=== PATIENT | male | born 1935 | race African-American/Black ===

== ENCOUNTER 2023-09-24 16:04 | Inpatient (IN) | payer MEDICARE, OTHER ==
[~2023-09-24] VITALS: Ht 180.3 cm; Wt 87.5 kg
[2023-09-24 18:37] LABS: HEMATOCRIT. 28.1 % (42.0-52.0); HEMOGLOBIN. 9.2 g/dL (14.0-18.0); MEAN CORPUSCULAR HEMOGLOBIN 27.8 pg (28.0-32.0); MEAN CORPUSCULAR HGB CONC 32.8 g/dL (31.0-37.0); MEAN CORPUSCULAR VOLUME 84.8 fL (80.0-94.0); MEAN PLATELET VOLUME 7.6 fl (7.4-10.4); PLATELET 257 x1000/uL (130-400); RED BLOOD CELL COUNT 3.32 mill/uL (4.7-6.1); RED CELL DISTRIBUTION WIDTH 14.5 % (11.6-14.6); WHITE BLOOD COUNT 6.6 x1000/uL (4.5-11.0)
[2023-09-24 18:39] LABS: DIFFERENTIAL COMMENT 1
[2023-09-24 18:45] LABS: CHLORIDE 106 mEq/L (98-107); INDEX HEMOLYSI 1 (1-3); INDEX ICTERIC 1 (1-4); INDEX LIPEMIC 1 (1-3); POTASSIUM 4.4 mEq/L (3.5-5.1); SODIUM 138 mEq/L (136-145)
[2023-09-24 18:46] LABS: PROTHROMBIN TIME 11.2 sec (9.6-11.0)
[2023-09-24 18:47] LABS: UREA NITROGEN BLOOD 28 mg/dL (7-21)
[2023-09-24 18:54] LABS: ALANINE AMINOTRANSFERASE 41 IU/L (13-61); ALBUMIN 2.5 g/dL (3.4-5.0); ASPARTATE AMINOTRANSFERASE 43 IU/L (15-37); BILIRUBIN TOTAL 0.6 mg/dL (0.1-1.0); CARBON DIOXIDE 25 mEq/L (21-32); CREATININE 1.1 mg/dL (0.6-1.3); GLUCOSE 114 mg/dL (70-105); PROTEIN TOTAL 6.4 g/dL (6.0-8.3)
[2023-09-24 19:09] LABS: PLATELET ESTIMATE NORMAL
[2023-09-24] MEDS ORDERED: CLONIDINE 0.1MG TABLET PO PRN (21:00)
[2023-09-24] MEDS ORDERED: MAGNESIUM/ALUMINUM HYDROXIDE/SIMETHICONE 30ML UDC PO PRN (21:00)
[2023-09-24] MEDS ORDERED: DOCUSATE SODIUM 100MG CAPSULE PO PRN (21:00)
[2023-09-24] MEDS ORDERED: METOPROLOL SUCCINATE 50MG ER TABLET PO SCH (21:00)
[2023-09-24] MEDS ORDERED: ONDANSETRON HCL 4MG/2ML INJ IV PRN (21:00)
[2023-09-24] MEDS ORDERED: GUAIFENESIN 200MG/10ML SUGAR FREE UDC PO PRN (21:00)
[2023-09-24] MEDS ORDERED: NA PHOS,M-B/NA PHOS,DI-BA ENEMA 118ML PR PRN (21:00)
[2023-09-24] MEDS ORDERED: MORPHINE SULFATE 2 MG/ML CPJ (NOT FOR IM USE) IV PRN (21:00)
[2023-09-24] MEDS ORDERED: KETOROLAC 15MG/ML VIAL IV PRN (21:00)
[2023-09-24] MEDS ORDERED: ACETAMINOPHEN 325MG TABLET PO PRN (21:00)
[2023-09-24] MEDS ORDERED: IPRATROPIUM/ALBUTEROL 0.5-3(2.5)MG/3ML NEB HHN PRN (21:00)
[2023-09-24] MEDS: ATORVASTATIN CALCIUM 20MG TABLET PO SCH (21:24)
[2023-09-24] MEDS: METOPROLOL TARTRATE 25MG TABLET PO SCH (21:24)
[2023-09-24 21:37] LABS: INDEX HEMOLYSI 2 (1-3); INDEX ICTERIC 1 (1-4); INDEX LIPEMIC 1 (1-3)
[2023-09-24 21:41] LABS: HAPTOGLOBIN 233 mg/dL (30-200); IRON 30 ug/dL (50-175); TOTAL IRON BINDING CAPACITY 180 ug/dL (250-450)
[2023-09-24 22:29] LABS: CLARITY URINE CLEAR (CLEAR); COLOR URINE YELLOW (YELLOW); GLUCOSE URINE NEGATIVE (NEGATIVE); KETONES URINE NEGATIVE (NEGATIVE); LEUKOCYTE ESTERASE URINE NEGATIVE (NEGATIVE); NITRITE URINE NEGATIVE (NEGATIVE); OCCULT BLOOD URINE NEGATIVE (NEGATIVE); PH URINE 5.5 (4.5-8.0); PROTEIN URINE NEGATIVE (NEGATIVE); SPECIFIC GRAVITY URINE 1.015 (1.005-1.030)
[2023-09-24 22:49] LABS: HEMATOCRIT 28.1 % (42.0-52.0); HEMOGLOBIN 9.5 g/dL (14.0-18.0)
[2023-09-24 22:51] LABS: *AMPHETAMINES SCREEN URINE NEGATIVE (NEGATIVE); *BARBITURATES SCREEN URINE NEGATIVE (NEGATIVE); *BENZODIAZEPINES SCREEN URINE NEGATIVE (NEGATIVE); *COCAINE SCREEN URINE NEGATIVE (NEGATIVE); CANNABINOID URINE SCREEN NEGATIVE (NEGATIVE); ECSTASY MDMA SCREEN URINE NEGATIVE (NEGATIVE); METHADONE URINE SCREEN NEGATIVE (NEGATIVE); OPIATES URINE SCREEN NEGATIVE (NEGATIVE); PHENCYCLIDINE URINE SCREEN NEGATIVE (NEGATIVE)
[2023-09-24 22:51] LABS: INDEX HEMOLYSI 1 (1-3)
[2023-09-24 22:58] LABS: CREATINE KINASE 129 IU/L (39-308); TROPONIN I HIGH SENSITIVITY 15 ng/L (<78)
[2023-09-25 04:00] VITALS: BP 163/61; PULSE 79; RESP 18; TEMP 97.8
[2023-09-25 05:55] VITALS: BP 113/77; PULSE 82; RESP 18; TEMP 98.6
[2023-09-25 06:12] LABS: INDEX HEMOLYSI 1 (1-3)
[2023-09-25 06:19] LABS: CREATINE KINASE 116 IU/L (39-308); TROPONIN I HIGH SENSITIVITY 13 ng/L (<78)
[2023-09-25 06:44] LABS: FOLIC ACID (FOLATE) SERUM 18.3 ng/mL (>5.38)
[2023-09-25 06:48] LABS: CHLORIDE 107 mEq/L (98-107); INDEX HEMOLYSI 1 (1-3); INDEX ICTERIC 1 (1-4); INDEX LIPEMIC 1 (1-3); POTASSIUM 4.3 mEq/L (3.5-5.1); SODIUM 141 mEq/L (136-145)
[2023-09-25 07:01] LABS: ALANINE AMINOTRANSFERASE 38 IU/L (13-61); ALBUMIN 2.3 g/dL (3.4-5.0); ASPARTATE AMINOTRANSFERASE 37 IU/L (15-37); BILIRUBIN TOTAL 0.7 mg/dL (0.1-1.0); CALCIUM 8.2 mg/dL (8.5-10.1); CARBON DIOXIDE 29 mEq/L (21-32); CHOLESTEROL 98 mg/dL (<200); GLUCOSE 93 mg/dL (70-105); HDL CHOLESTEROL 40 mg/dL (40-59); LDL CHOLESTEROL 56 mg/dL (5-100); PROTEIN TOTAL 6.2 g/dL (6.0-8.3); T4 FREE 1.22 ng/dL (0.76-1.46); TRIGLYCERIDE 87 mg/dL (0-150); UREA NITROGEN BLOOD 24 mg/dL (7-21)
[2023-09-25 07:08] LABS: BASOPHILS % 0.5 % (0.0-2.0); EOSINOPHILS % 3.5 % (0.0-5.0); HEMATOCRIT. 27.1 % (42.0-52.0); HEMOGLOBIN. 9.1 g/dL (14.0-18.0); LYMPHOCYTES % 7.3 % (20.0-50.0); MEAN CORPUSCULAR HEMOGLOBIN 28.2 pg (28.0-32.0); MEAN CORPUSCULAR HGB CONC 33.6 g/dL (31.0-37.0); MEAN CORPUSCULAR VOLUME 84.1 fL (80.0-94.0); MEAN PLATELET VOLUME 7.6 fl (7.4-10.4); MONOCYTES % 9.7 % (2.0-8.0); PLATELET 258 x1000/uL (130-400); RED BLOOD CELL COUNT 3.22 mill/uL (4.7-6.1); RED CELL DISTRIBUTION WIDTH 14.5 % (11.6-14.6); WHITE BLOOD COUNT 4.4 x1000/uL (4.5-11.0)
[2023-09-25 08:00] VITALS: PULSE 86; RESP 18; TEMP 97.1
[2023-09-25] MEDS ORDERED: APIXABAN 2.5 MG TABLET PO SCH (09:00)
[2023-09-25] MEDS: LISINOPRIL 10MG TABLET PO SCH ×2 (09:00→10:38)
[2023-09-25] MEDS: METOPROLOL TARTRATE 25MG TABLET PO SCH ×2 (10:39→12:09)
[2023-09-25] MEDS: PANTOPRAZOLE SODIUM 40 MG/VIAL IV SCH (10:40)
[2023-09-25 12:00] VITALS: BP 143/76; PULSE 85; RESP 18; TEMP 97.7
[2023-09-25 16:00] VITALS: BP 159/90; PULSE 99; RESP 19; TEMP 97.9
[2023-09-25] MEDS ORDERED: DEXT 5%/0.45% NACL 1000ML 1,000 ML IV SCH (19:00)
[2023-09-25 20:00] VITALS: BP 169/79; PULSE 108; RESP 19; TEMP 97.4
[2023-09-25] MEDS: ATORVASTATIN CALCIUM 20MG TABLET PO SCH (21:14)
[2023-09-26] VITALS: BP 159/83; PULSE 65; RESP 17; TEMP 99.6
[2023-09-26 04:00] VITALS: BP 148/70; PULSE 104; RESP 19; TEMP 97.3
[2023-09-26] MEDS: DEXT 5%/0.45% NACL 1000ML 1,000 ML IV SCH ×3 (06:12→21:40)
[2023-09-26] MEDS ORDERED: LIDOCAINE HCL 1%/EPI 1:200,000 30 ML VIAL ONE (06:35)
[2023-09-26] MEDS ORDERED: POLYMYXIN B SULFATE 500000 UNITS/VIAL ONE (06:35)
[2023-09-26] MEDS ORDERED: VANCOMYCIN HCL 1 GM/VIAL ONE (06:35)
[2023-09-26] MEDS ORDERED: TRANEXAMIC ACID 0 ML ONE (06:51)
[2023-09-26] MEDS ORDERED: METOCLOPRAMIDE HCL 10MG/2ML VIAL ONE (07:19)
[2023-09-26] MEDS ORDERED: LIDOCAINE HCL 1% 20ML VIAL (Pyxis) INJ ONE (07:19)
[2023-09-26] MEDS ORDERED: ONDANSETRON HCL 4MG/2ML INJ ONE (07:19)
[2023-09-26] MEDS ORDERED: CEFAZOLIN SODIUM 1000MG/VIAL ONE (07:19)
[2023-09-26] MEDS ORDERED: DEXAMETHASONE 4MG/ML 1ML VIAL ONE (07:19)
[2023-09-26] MEDS ORDERED: FENTANYL CITRATE/PF 50MCG/ML 2ML VIAL ONE ×2 (07:20→07:52)
[2023-09-26] MEDS ORDERED: PROPOFOL 200MG/20ML VIAL IV ONE (07:20)
[2023-09-26] MEDS ORDERED: HYDROMORPHONE HCL/PF 2MG/ML CPJ ONE (07:53)
[2023-09-26] MEDS ORDERED: METOPROLOL TARTRATE 5MG/5ML VIAL IV ONE (08:19)
[2023-09-26] MEDS ORDERED: FENTANYL CITRATE/PF 50MCG/ML 2ML VIAL IV PRN (09:15)
[2023-09-26] MEDS ORDERED: HYDROMORPHONE HCL/PF 2MG/ML CPJ IV PRN (09:15)
[2023-09-26 10:22] VITALS: BP 147/72; PULSE 101; RESP 20; TEMP 97.7
[2023-09-26] MEDS: METOPROLOL TARTRATE 25MG TABLET PO SCH ×2 (11:22→21:57)
[2023-09-26] MEDS: LISINOPRIL 10MG TABLET PO SCH (11:22)
[2023-09-26] MEDS: PANTOPRAZOLE SODIUM 40 MG/VIAL IV SCH (11:22)
[2023-09-26 11:42] LABS: HEMOGLOBIN. 9.3 g/dL (14.0-18.0); MEAN CORPUSCULAR HEMOGLOBIN 27.6 pg (28.0-32.0); MEAN CORPUSCULAR HGB CONC 32.1 g/dL (31.0-37.0); MEAN CORPUSCULAR VOLUME 85.9 fL (80.0-94.0); MEAN PLATELET VOLUME 7.1 fl (7.4-10.4); PLATELET 305 x1000/uL (130-400); RED BLOOD CELL COUNT 3.38 mill/uL (4.7-6.1); RED CELL DISTRIBUTION WIDTH 14.9 % (11.6-14.6); WHITE BLOOD COUNT 9.6 x1000/uL (4.5-11.0)
[2023-09-26 11:47] LABS: DIFFERENTIAL COMMENT 1
[2023-09-26 12:26] LABS: CHLORIDE 108 mEq/L (98-107); INDEX HEMOLYSI 1 (1-3); INDEX ICTERIC 1 (1-4); INDEX LIPEMIC 1 (1-3); POTASSIUM 4.5 mEq/L (3.5-5.1); SODIUM 140 mEq/L (136-145)
[2023-09-26 12:35] LABS: CALCIUM 7.8 mg/dL (8.5-10.1); CARBON DIOXIDE 26 mEq/L (21-32); CREATININE 1.1 mg/dL (0.6-1.3); GLUCOSE 134 mg/dL (70-105); UREA NITROGEN BLOOD 22 mg/dL (7-21)
[2023-09-26 14:01] LABS: NUCLEATED RED BLOOD CELLS 1 /100 WBC; PLATELET ESTIMATE NORMAL
[2023-09-26] MEDS: CEFAZOLIN 2,000 MG in DEXT 5% WATER 100 ML IV SCH ×2 (14:50→22:14)
[2023-09-26 16:00] VITALS: BP 125/91; PULSE 83; RESP 19; TEMP 98.2
[2023-09-26 20:00] VITALS: BP 130/72; PULSE 104; RESP 16; TEMP 97.1
[2023-09-26] MEDS: ATORVASTATIN CALCIUM 20MG TABLET PO SCH (21:57)
[2023-09-26] MEDS: ACETAMINOPHEN 325MG TABLET PO PRN (22:02)
[2023-09-27] VITALS: BP 129/63; PULSE 85; RESP 16; TEMP 97.5
[2023-09-27 04:00] VITALS: BP 131/84; PULSE 86; RESP 18; TEMP 97.8
[2023-09-27] MEDS: CEFAZOLIN 2,000 MG in DEXT 5% WATER 100 ML IV SCH ×3 (06:15→13:39)
[2023-09-27 08:00] VITALS: BP 132/76; PULSE 76; RESP 18; TEMP 96.6
[2023-09-27] MEDS: METOPROLOL TARTRATE 25MG TABLET PO SCH ×2 (09:30→21:00)
[2023-09-27] MEDS: PANTOPRAZOLE SODIUM 40 MG/VIAL IV SCH (09:31)
[2023-09-27] MEDS: LISINOPRIL 10MG TABLET PO SCH (09:31)
[2023-09-27] MEDS: ACETAMINOPHEN 325MG TABLET PO PRN (09:46)
[2023-09-27] MEDS: DEXT 5%/0.45% NACL 1000ML 1,000 ML IV SCH (11:00)
[2023-09-27 12:00] VITALS: BP 113/68; PULSE 88; RESP 18; TEMP 97.6
[2023-09-27 16:00] VITALS: BP 113/67; PULSE 81; RESP 19; TEMP 97.7
[2023-09-27 20:00] VITALS: BP 106/65; PULSE 106; RESP 18; TEMP 96.5
[2023-09-27] MEDS: ATORVASTATIN CALCIUM 20MG TABLET PO SCH (21:00)
[2023-09-28] VITALS: BP 130/75; PULSE 103; RESP 18; TEMP 98.2
[2023-09-28] MEDS: DEXT 5%/0.45% NACL 1000ML 1,000 ML IV SCH (00:07)
[2023-09-28 04:00] VITALS: BP 131/70; PULSE 87; RESP 18; TEMP 97.9
[2023-09-28] MEDS: CEFAZOLIN 2,000 MG in DEXT 5% WATER 100 ML IV SCH (05:27)
[2023-09-28 07:24] LABS: HEMATOCRIT. 26.4 % (42.0-52.0); HEMOGLOBIN. 8.7 g/dL (14.0-18.0); MEAN CORPUSCULAR HEMOGLOBIN 28.1 pg (28.0-32.0); MEAN CORPUSCULAR HGB CONC 32.8 g/dL (31.0-37.0); MEAN CORPUSCULAR VOLUME 85.5 fL (80.0-94.0); MEAN PLATELET VOLUME 7.3 fl (7.4-10.4); PLATELET 269 x1000/uL (130-400); RED BLOOD CELL COUNT 3.09 mill/uL (4.7-6.1); RED CELL DISTRIBUTION WIDTH 15.2 % (11.6-14.6); WHITE BLOOD COUNT 6.1 x1000/uL (4.5-11.0)
[2023-09-28 07:28] LABS: DIFFERENTIAL COMMENT 1
[2023-09-28 07:39] LABS: CALCIUM 8.3 mg/dL (8.5-10.1); CHLORIDE 109 mEq/L (98-107); INDEX HEMOLYSI 1 (1-3); INDEX ICTERIC 1 (1-4); INDEX LIPEMIC 1 (1-3); POTASSIUM 4.5 mEq/L (3.5-5.1); SODIUM 139 mEq/L (136-145)
[2023-09-28 07:44] LABS: CARBON DIOXIDE 27 mEq/L (21-32); GLUCOSE 104 mg/dL (70-105); UREA NITROGEN BLOOD 21 mg/dL (7-21)
[2023-09-28 08:00] VITALS: BP 135/70; PULSE 79; RESP 20; TEMP 97.1
[2023-09-28] MEDS: LISINOPRIL 10MG TABLET PO SCH (08:28)
[2023-09-28] MEDS: METOPROLOL TARTRATE 25MG TABLET PO SCH (08:28)
[2023-09-28] MEDS ORDERED: FAMOTIDINE 20MG TABLET PO SCH (09:00)
[2023-09-28 12:00] VITALS: BP 103/49; PULSE 75; RESP 20; TEMP 97.1
[2023-09-28 13:18] VITALS: BP 103/49; PULSE 75; TEMP 97.8; O2SAT 100
[2023-09-29 11:26] LABS: ANISOCYTOSIS 1+; PLATELET ESTIMATE NORMAL
== END 2023-09-28 16:06 | DRG 482 ==
LOC: ER 16:04 → 6EST 20:38
PROVIDERS: ADMIT Internal Medicine; ATTEND Internal Medicine
PROC: 0QS606Z Reposition Right Upper Femur with Intramedullary Internal Fixation Device, Open Approach (ICD-10-PCS; principal; 2023-09-26)
DX: S72.141A Displaced intertrochanteric fracture of right femur, initial encounter for closed fracture (principal); D63.8 Anemia in other chronic diseases classified elsewhere; I10 Essential (primary) hypertension; K59.00 Constipation, unspecified; D50.9 Iron deficiency anemia, unspecified; G89.29 Other chronic pain; I48.0 Paroxysmal atrial fibrillation; E78.5 Hyperlipidemia, unspecified; W01.0XXA Fall on same level from slipping, tripping and stumbling without subsequent striking against object, initial encounter; Z79.01 Long term (current) use of anticoagulants; Z85.46 Personal history of malignant neoplasm of prostate; Z92.3 Personal history of irradiation; Z79.899 Other long term (current) drug therapy; Z82.49 Family history of ischemic heart disease and other diseases of the circulatory system
CPT/HCPCS: 36415; 71045; 73502; 73560; 74176; 76000; 80048; 80053; 80061; 80305; 81003; 82550; 82607; 82728; 82746; 82962; 83010; 83036; 83540; 83550; 83605; 84145; 84439; 84443; 84484; 85014; 85018; 85025; 85044; 86850; 86900; 93005; 93306; 97162; 97166; 97530; 97535; 99285; C9113; J0690; J1100; J1170; J1885; J2270; J2405; J2704; J2765; J3010; J3370; J3490; J7030; J7060; C1713; C1769

== ENCOUNTER 2023-09-28 16:05 | Inpatient (IN) | payer MEDICARE ==
[~2023-09-28] VITALS: Ht 180.3 cm; Wt 86.6 kg
[2023-09-28 16:10] VITALS: BP 125/62; PULSE 88; RESP 18; TEMP 96.6
[2023-09-28 16:30] VITALS: BP 125/62; PULSE 62; RESP 18; TEMP 96.6
[2023-09-28] MEDS ORDERED: NA PHOS,M-B/NA PHOS,DI-BA ENEMA 118ML PR PRN (17:15)
[2023-09-28] MEDS ORDERED: CLONIDINE 0.1MG TABLET PO PRN (17:15)
[2023-09-28] MEDS ORDERED: ACETAMINOPHEN 325MG TABLET PO PRN (17:15)
[2023-09-28] MEDS ORDERED: IPRATROPIUM/ALBUTEROL 0.5-3(2.5)MG/3ML NEB HHN PRN (17:15)
[2023-09-28] MEDS ORDERED: GUAIFENESIN 200MG/10ML SUGAR FREE UDC PO PRN (17:15)
[2023-09-28] MEDS ORDERED: MAGNESIUM/ALUMINUM HYDROXIDE/SIMETHICONE 30ML UDC PO PRN (17:15)
[2023-09-28] MEDS ORDERED: ONDANSETRON HCL 4MG/2ML INJ IV PRN (17:15)
[2023-09-28] MEDS ORDERED: LISINOPRIL 10MG TABLET PO SCH (18:00)
[2023-09-28] MEDS: DOCUSATE SODIUM 100MG CAPSULE PO SCH (18:51)
[2023-09-28 20:00] VITALS: BP 124/80; PULSE 113; RESP 18; TEMP 99.1
[2023-09-28] MEDS: LACTULOSE 20G/30ML UDC PO SCH ×2 (22:00→22:02)
[2023-09-28] MEDS: DEXT 5%/0.45% NACL 1000ML 1,000 ML IV SCH (22:01)
[2023-09-28] MEDS: FAMOTIDINE 20MG TABLET PO SCH (22:01)
[2023-09-28] MEDS: ATORVASTATIN CALCIUM 20MG TABLET PO SCH (22:02)
[2023-09-28] MEDS: METOPROLOL TARTRATE 25MG TABLET PO SCH (22:02)
[2023-09-28] MEDS: ACETAMINOPHEN 325MG TABLET PO PRN (22:03)
[2023-09-29] MEDS: LACTULOSE 20G/30ML UDC PO SCH (07:04)
[2023-09-29] MEDS: DEXT 5%/0.45% NACL 1000ML 1,000 ML IV SCH ×3 (07:20→23:20)
[2023-09-29 08:00] VITALS: BP 135/81; PULSE 101; RESP 18; TEMP 96.8
[2023-09-29 08:33] LABS: HEMATOCRIT. 27.5 % (42.0-52.0); HEMOGLOBIN. 9.1 g/dL (14.0-18.0); MEAN CORPUSCULAR HEMOGLOBIN 28.2 pg (28.0-32.0); MEAN CORPUSCULAR HGB CONC 33.1 g/dL (31.0-37.0); MEAN CORPUSCULAR VOLUME 85.2 fL (80.0-94.0); MEAN PLATELET VOLUME 7.2 fl (7.4-10.4); PLATELET 271 x1000/uL (130-400); RED BLOOD CELL COUNT 3.22 mill/uL (4.7-6.1); RED CELL DISTRIBUTION WIDTH 15.2 % (11.6-14.6); WHITE BLOOD COUNT 6.8 x1000/uL (4.5-11.0)
[2023-09-29 08:37] LABS: DIFFERENTIAL COMMENT 1
[2023-09-29 09:22] LABS: CHLORIDE 108 mEq/L (98-107); INDEX HEMOLYSI 1 (1-3); INDEX ICTERIC 1 (1-4); INDEX LIPEMIC 1 (1-3); POTASSIUM 4.5 mEq/L (3.5-5.1); SODIUM 140 mEq/L (136-145)
[2023-09-29] MEDS: LISINOPRIL 10MG TABLET PO SCH (09:26)
[2023-09-29] MEDS: METOPROLOL TARTRATE 25MG TABLET PO SCH ×2 (09:27→21:00)
[2023-09-29] MEDS: DOCUSATE SODIUM 100MG CAPSULE PO SCH ×2 (09:27→17:17)
[2023-09-29 09:39] LABS: ALANINE AMINOTRANSFERASE 33 IU/L (13-61); ALBUMIN 2.4 g/dL (3.4-5.0); ASPARTATE AMINOTRANSFERASE 45 IU/L (15-37); BILIRUBIN TOTAL 0.5 mg/dL (0.1-1.0); CALCIUM 8.5 mg/dL (8.5-10.1); CARBON DIOXIDE 28 mEq/L (21-32); CREATININE 0.9 mg/dL (0.6-1.3); GLUCOSE 104 mg/dL (70-105); PREALBUMIN 10.4 mg/dL (20.0-40.0); PROTEIN TOTAL 6.3 g/dL (6.0-8.3); UREA NITROGEN BLOOD 22 mg/dL (7-21)
[2023-09-29] MEDS: ACETAMINOPHEN 325MG TABLET PO PRN (13:36)
[2023-09-29 16:31] LABS: PLATELET ESTIMATE NORMAL
[2023-09-29 20:00] VITALS: BP 121/72; PULSE 99; RESP 28; TEMP 97.5
[2023-09-29] MEDS: ATORVASTATIN CALCIUM 20MG TABLET PO SCH (21:22)
[2023-09-29] MEDS: FAMOTIDINE 20MG TABLET PO SCH (21:22)
[2023-09-29] MEDS: ENOXAPARIN 30MG/0.3ML SYR SUBCUT SCH (21:24)
[2023-09-30] MEDS: ACETAMINOPHEN 325MG TABLET PO PRN ×2 (06:45→12:47)
[2023-09-30 07:33] LABS: BASOPHILS % 0.5 % (0.0-2.0); EOSINOPHILS % 3.1 % (0.0-5.0); HEMOGLOBIN. 8.5 g/dL (14.0-18.0); LYMPHOCYTES % 7.9 % (20.0-50.0); MEAN CORPUSCULAR HEMOGLOBIN 27.9 pg (28.0-32.0); MEAN CORPUSCULAR HGB CONC 32.8 g/dL (31.0-37.0); MEAN CORPUSCULAR VOLUME 85.2 fL (80.0-94.0); MEAN PLATELET VOLUME 7.2 fl (7.4-10.4); MONOCYTES % 6.2 % (2.0-8.0); NEUTROPHILS % 82.3 % (40.0-76.0); PLATELET 264 x1000/uL (130-400); RED BLOOD CELL COUNT 3.06 mill/uL (4.7-6.1); RED CELL DISTRIBUTION WIDTH 15.4 % (11.6-14.6)
[2023-09-30 08:00] VITALS: BP 137/88; PULSE 108; RESP 22; TEMP 97.6
[2023-09-30] MEDS: DOCUSATE SODIUM 100MG CAPSULE PO SCH ×2 (08:41→17:00)
[2023-09-30] MEDS: LISINOPRIL 10MG TABLET PO SCH (08:42)
[2023-09-30] MEDS: METOPROLOL TARTRATE 25MG TABLET PO SCH ×2 (08:42→21:46)
[2023-09-30 09:11] LABS: ALBUMIN 2.2 g/dL (3.4-5.0); CHLORIDE 109 mEq/L (98-107); INDEX HEMOLYSI 1 (1-3); INDEX ICTERIC 1 (1-4); INDEX LIPEMIC 1 (1-3); POTASSIUM 4.3 mEq/L (3.5-5.1); SODIUM 139 mEq/L (136-145)
[2023-09-30 09:17] LABS: ALANINE AMINOTRANSFERASE 50 IU/L (13-61); ASPARTATE AMINOTRANSFERASE 54 IU/L (15-37); BILIRUBIN TOTAL 0.5 mg/dL (0.1-1.0); CARBON DIOXIDE 27 mEq/L (21-32); CREATININE 0.8 mg/dL (0.6-1.3); GLUCOSE 95 mg/dL (70-105); IRON 35 ug/dL (50-175); PROTEIN TOTAL 5.9 g/dL (6.0-8.3); TOTAL IRON BINDING CAPACITY 179 ug/dL (250-450)
[2023-09-30] MEDS ORDERED: IRON SUCROSE COMPLEX 100 MG/5 ML ML IV SCH (09:30)
[2023-09-30 11:07] LABS: UREA NITROGEN BLOOD 19 mg/dL (7-21)
[2023-09-30 12:28] LABS: VITAMIN B12 SERUM 1308 pg/mL (211-911)
[2023-09-30 14:22] LABS: FERRITIN 155 ng/mL (22-322)
[2023-09-30] MEDS: DEXT 5%/0.45% NACL 1000ML 1,000 ML IV SCH (15:28)
[2023-09-30] MEDS: IRON SUCROSE COMPLEX 100 MG in SODIUM CHLORIDE 0.9% 100 ML IV SCH (15:29)
[2023-09-30 20:00] VITALS: BP 131/76; PULSE 104; RESP 18; TEMP 97.7
[2023-09-30] MEDS: ATORVASTATIN CALCIUM 20MG TABLET PO SCH (21:46)
[2023-09-30] MEDS: FAMOTIDINE 20MG TABLET PO SCH (21:46)
[2023-09-30] MEDS: ENOXAPARIN 30MG/0.3ML SYR SUBCUT SCH (21:47)
[2023-10-01] MEDS: DEXT 5%/0.45% NACL 1000ML 1,000 ML IV SCH (06:14)
[2023-10-01 07:56] VITALS: BP 135/74; PULSE 97; RESP 20; TEMP 96.4
[2023-10-01] MEDS: LISINOPRIL 10MG TABLET PO SCH (08:31)
[2023-10-01] MEDS: DOCUSATE SODIUM 100MG CAPSULE PO SCH ×2 (08:31→17:32)
[2023-10-01] MEDS: METOPROLOL TARTRATE 25MG TABLET PO SCH ×2 (08:32→21:19)
[2023-10-01] MEDS: ACETAMINOPHEN 325MG TABLET PO PRN (08:34)
[2023-10-01] MEDS ORDERED: ACETAMINOPHEN 325MG TABLET PO PRN ×2 (10:15)
[2023-10-01] MEDS: IRON SUCROSE COMPLEX 100 MG in SODIUM CHLORIDE 0.9% 100 ML IV SCH (12:07)
[2023-10-01] MEDS: KETOROLAC 10MG TABLET PO PRN (13:47)
[2023-10-01 20:00] VITALS: BP 130/69; PULSE 98; RESP 20; TEMP 97.5
[2023-10-01] MEDS: ATORVASTATIN CALCIUM 20MG TABLET PO SCH (21:18)
[2023-10-01] MEDS: FAMOTIDINE 20MG TABLET PO SCH (21:18)
[2023-10-01] MEDS: ENOXAPARIN 30MG/0.3ML SYR SUBCUT SCH (21:18)
[2023-10-01] MEDS: MUPIROCIN 2% OINT 15GM NS SCH (21:21)
[2023-10-02] MEDS: DEXT 5%/0.45% NACL 1000ML 1,000 ML IV SCH ×2 (02:00→14:56)
[2023-10-02 06:23] LABS: HEMATOCRIT. 24.6 % (42.0-52.0); HEMOGLOBIN. 8.2 g/dL (14.0-18.0); MEAN CORPUSCULAR HEMOGLOBIN 28.4 pg (28.0-32.0); MEAN CORPUSCULAR HGB CONC 33.4 g/dL (31.0-37.0); PLATELET 273 x1000/uL (130-400); RED BLOOD CELL COUNT 2.89 mill/uL (4.7-6.1); RED CELL DISTRIBUTION WIDTH 15.3 % (11.6-14.6); WHITE BLOOD COUNT 6.6 x1000/uL (4.5-11.0)
[2023-10-02 06:31] LABS: CHLORIDE 108 mEq/L (98-107); INDEX HEMOLYSI 1 (1-3); INDEX ICTERIC 1 (1-4); INDEX LIPEMIC 1 (1-3); POTASSIUM 4.3 mEq/L (3.5-5.1); SODIUM 139 mEq/L (136-145)
[2023-10-02 06:32] LABS: DIFFERENTIAL COMMENT 1
[2023-10-02 06:41] LABS: ALANINE AMINOTRANSFERASE 70 IU/L (13-61); ALBUMIN 2.2 g/dL (3.4-5.0); ASPARTATE AMINOTRANSFERASE 63 IU/L (15-37); BILIRUBIN TOTAL 0.7 mg/dL (0.1-1.0); CALCIUM 8.1 mg/dL (8.5-10.1); CARBON DIOXIDE 27 mEq/L (21-32); CREATININE 0.9 mg/dL (0.6-1.3); GLUCOSE 96 mg/dL (70-105); PROTEIN TOTAL 5.8 g/dL (6.0-8.3); UREA NITROGEN BLOOD 21 mg/dL (7-21)
[2023-10-02 08:00] VITALS: BP 143/74; PULSE 74; RESP 18; TEMP 96.7
[2023-10-02] MEDS: METOPROLOL TARTRATE 25MG TABLET PO SCH ×2 (08:36→22:06)
[2023-10-02] MEDS: KETOROLAC 10MG TABLET PO PRN (08:37)
[2023-10-02] MEDS: LISINOPRIL 10MG TABLET PO SCH (08:37)
[2023-10-02] MEDS: DOCUSATE SODIUM 100MG CAPSULE PO SCH ×2 (08:37→17:52)
[2023-10-02] MEDS: MUPIROCIN 2% OINT 15GM NS SCH ×2 (08:37→22:05)
[2023-10-02] MEDS: IRON SUCROSE COMPLEX 100 MG in SODIUM CHLORIDE 0.9% 100 ML IV SCH (12:00)
[2023-10-02 13:04] LABS: HEMATOCRIT. 25.9 % (42.0-52.0); HEMOGLOBIN. 8.3 g/dL (14.0-18.0); MEAN CORPUSCULAR HEMOGLOBIN 27.4 pg (28.0-32.0); MEAN CORPUSCULAR HGB CONC 31.9 g/dL (31.0-37.0); PLATELET 288 x1000/uL (130-400); RED BLOOD CELL COUNT 3.01 mill/uL (4.7-6.1); RED CELL DISTRIBUTION WIDTH 15.5 % (11.6-14.6); WHITE BLOOD COUNT 8.2 x1000/uL (4.5-11.0)
[2023-10-02 13:06] LABS: DIFFERENTIAL COMMENT 1
[2023-10-02 13:29] LABS: AMMONIA < 17 uMol/L (<32)
[2023-10-02] MEDS: THIAMINE HCL 100MG TABLET PO SCH (14:35)
[2023-10-02] MEDS: FOLIC ACID 1MG TABLET PO SCH (14:35)
[2023-10-02 16:37] LABS: PLATELET ESTIMATE NORMAL
[2023-10-02 18:52] LABS: PLATELET ESTIMATE NORMAL
[2023-10-02 18:59] LABS: CLARITY URINE CLEAR (CLEAR); COLOR URINE YELLOW (YELLOW); GLUCOSE URINE NEGATIVE (NEGATIVE); KETONES URINE NEGATIVE (NEGATIVE); LEUKOCYTE ESTERASE URINE TRACE (NEGATIVE); NITRITE URINE NEGATIVE (NEGATIVE); OCCULT BLOOD URINE NEGATIVE (NEGATIVE); PROTEIN URINE NEGATIVE (NEGATIVE); SPECIFIC GRAVITY URINE 1.009 (1.005-1.030); UROBILINOGEN URINE 0.2 E.U./dL (0.2-1.0)
[2023-10-02 19:01] LABS: RBC URINE 0-2 /hpf (0-2); WBC URINE 0-2 /hpf (0-2); YEAST URINE NONE SEEN
[2023-10-02 20:00] VITALS: BP 122/65; PULSE 70; RESP 18; TEMP 97.5
[2023-10-02 20:10] LABS: BACTERIA URINE TRACE; SQUAMOUS EPITHELIAL CELL URINE RARE /lpf (RARE/1+)
[2023-10-02] MEDS: ATORVASTATIN CALCIUM 20MG TABLET PO SCH (22:05)
[2023-10-02] MEDS: FAMOTIDINE 20MG TABLET PO SCH (22:05)
[2023-10-02] MEDS: ENOXAPARIN 30MG/0.3ML SYR SUBCUT SCH (22:06)
[2023-10-03] MEDS: DEXT 5%/0.45% NACL 1000ML 1,000 ML IV SCH ×2 (04:40→23:28)
[2023-10-03 08:00] VITALS: BP 137/77; PULSE 62; RESP 18; TEMP 97.3
[2023-10-03] MEDS: MUPIROCIN 2% OINT 15GM NS SCH ×2 (09:00→21:00)
[2023-10-03] MEDS: DOCUSATE SODIUM 100MG CAPSULE PO SCH ×2 (09:00→18:39)
[2023-10-03] MEDS: FOLIC ACID 1MG TABLET PO SCH (09:00)
[2023-10-03] MEDS: LISINOPRIL 10MG TABLET PO SCH (09:00)
[2023-10-03] MEDS: THIAMINE HCL 100MG TABLET PO SCH (09:00)
[2023-10-03] MEDS: METOPROLOL TARTRATE 25MG TABLET PO SCH ×2 (09:01→20:52)
[2023-10-03] MEDS: KETOROLAC 10MG TABLET PO PRN (09:02)
[2023-10-03] MEDS: ACETAMINOPHEN 325MG TABLET PO PRN (10:52)
[2023-10-03] MEDS ORDERED: ONDANSETRON 4MG ODT PO PRN (13:45)
[2023-10-03 20:00] VITALS: BP 140/75; PULSE 98; RESP 18; TEMP 97.7
[2023-10-03] MEDS: ATORVASTATIN CALCIUM 20MG TABLET PO SCH (20:51)
[2023-10-03] MEDS: ENOXAPARIN 30MG/0.3ML SYR SUBCUT SCH (20:53)
[2023-10-03] MEDS: FAMOTIDINE 20MG TABLET PO SCH (20:53)
[2023-10-04] MEDS: DEXT 5%/0.45% NACL 1000ML 1,000 ML IV SCH (07:20)
[2023-10-04 08:00] VITALS: BP 135/79; PULSE 94; RESP 18; TEMP 96.1
[2023-10-04] MEDS: MUPIROCIN 2% OINT 15GM NS SCH ×2 (09:13→21:00)
[2023-10-04] MEDS: DOCUSATE SODIUM 100MG CAPSULE PO SCH ×2 (09:13→17:09)
[2023-10-04] MEDS: FOLIC ACID 1MG TABLET PO SCH (09:14)
[2023-10-04] MEDS: THIAMINE HCL 100MG TABLET PO SCH (09:14)
[2023-10-04] MEDS: METOPROLOL TARTRATE 25MG TABLET PO SCH ×2 (09:14→21:11)
[2023-10-04] MEDS: LISINOPRIL 10MG TABLET PO SCH (09:15)
[2023-10-04] MEDS: KETOROLAC 10MG TABLET PO PRN (09:18)
[2023-10-04] MEDS: ACETAMINOPHEN 325MG TABLET PO PRN (17:10)
[2023-10-04 20:00] VITALS: BP 119/57; PULSE 87; RESP 18; TEMP 97.7
[2023-10-04] MEDS: FAMOTIDINE 20MG TABLET PO SCH (21:10)
[2023-10-04] MEDS: ATORVASTATIN CALCIUM 20MG TABLET PO SCH (21:10)
[2023-10-04] MEDS: ENOXAPARIN 30MG/0.3ML SYR SUBCUT SCH (21:12)
[2023-10-05] MEDS: DEXT 5%/0.45% NACL 1000ML 1,000 ML IV SCH ×3 (02:00→10:00)
[2023-10-05 08:00] VITALS: BP 153/85; PULSE 107; RESP 18; TEMP 96.8
[2023-10-05] MEDS: LISINOPRIL 10MG TABLET PO SCH (08:17)
[2023-10-05] MEDS: METOPROLOL TARTRATE 25MG TABLET PO SCH ×2 (08:17→21:44)
[2023-10-05] MEDS: FOLIC ACID 1MG TABLET PO SCH (08:17)
[2023-10-05] MEDS: DOCUSATE SODIUM 100MG CAPSULE PO SCH ×2 (08:17→16:59)
[2023-10-05] MEDS: THIAMINE HCL 100MG TABLET PO SCH (08:17)
[2023-10-05] MEDS: MUPIROCIN 2% OINT 15GM NS SCH ×2 (08:18→21:45)
[2023-10-05 09:35] LABS: BASOPHILS % 0.3 % (0.0-2.0); EOSINOPHILS % 2.4 % (0.0-5.0); HEMATOCRIT. 28.9 % (42.0-52.0); HEMOGLOBIN. 9.4 g/dL (14.0-18.0); LYMPHOCYTES % 7.3 % (20.0-50.0); MEAN CORPUSCULAR HEMOGLOBIN 28.3 pg (28.0-32.0); MEAN CORPUSCULAR HGB CONC 32.6 g/dL (31.0-37.0); MEAN CORPUSCULAR VOLUME 86.8 fL (80.0-94.0); MEAN PLATELET VOLUME 6.8 fl (7.4-10.4); MONOCYTES % 5.8 % (2.0-8.0); NEUTROPHILS % 84.2 % (40.0-76.0); PLATELET 361 x1000/uL (130-400); RED BLOOD CELL COUNT 3.33 mill/uL (4.7-6.1); RED CELL DISTRIBUTION WIDTH 16.8 % (11.6-14.6); WHITE BLOOD COUNT 7.6 x1000/uL (4.5-11.0)
[2023-10-05 10:20] LABS: ALANINE AMINOTRANSFERASE 61 IU/L (10-49); ALBUMIN 3.3 g/dL (3.2-4.8); ASPARTATE AMINOTRANSFERASE 47 IU/L (<34); BILIRUBIN TOTAL 0.6 mg/dL (0.1-1.0); CALCIUM 8.7 mg/dL (8.7-10.4); CARBON DIOXIDE 26 mEq/L (21-32); CHLORIDE 103 mEq/L (98-107); GLUCOSE 126 mg/dL (70-105); PHOSPHORUS 3.3 mg/dL (2.5-4.9); POTASSIUM 4.4 mEq/L (3.5-5.1); PROTEIN TOTAL 6.2 g/dL (6.0-8.3); SODIUM 138 mEq/L (136-145); UREA NITROGEN BLOOD 16 mg/dL (9-23)
[2023-10-05] MEDS: ACETAMINOPHEN 325MG TABLET PO PRN (11:17)
[2023-10-05 20:00] VITALS: BP 115/68; PULSE 110; RESP 18; TEMP 97.1
[2023-10-05] MEDS: ATORVASTATIN CALCIUM 20MG TABLET PO SCH (21:43)
[2023-10-05] MEDS: FAMOTIDINE 20MG TABLET PO SCH (21:43)
[2023-10-05] MEDS: ENOXAPARIN 30MG/0.3ML SYR SUBCUT SCH (21:44)
[2023-10-06 07:53] LABS: BASOPHILS % 0.4 % (0.0-2.0); EOSINOPHILS % 3.5 % (0.0-5.0); HEMATOCRIT. 26.1 % (42.0-52.0); HEMOGLOBIN. 8.6 g/dL (14.0-18.0); LYMPHOCYTES % 7.1 % (20.0-50.0); MEAN CORPUSCULAR HEMOGLOBIN 28.5 pg (28.0-32.0); MEAN CORPUSCULAR HGB CONC 32.8 g/dL (31.0-37.0); MEAN PLATELET VOLUME 7.2 fl (7.4-10.4); MONOCYTES % 7.6 % (2.0-8.0); NEUTROPHILS % 81.4 % (40.0-76.0); PLATELET 329 x1000/uL (130-400); RED CELL DISTRIBUTION WIDTH 16.3 % (11.6-14.6); WHITE BLOOD COUNT 4.8 x1000/uL (4.5-11.0)
[2023-10-06 08:00] VITALS: BP 135/63; PULSE 88; RESP 19; TEMP 96.6
[2023-10-06 08:23] LABS: CALCIUM 8.3 mg/dL (8.7-10.4); CARBON DIOXIDE 26 mEq/L (21-32); CHLORIDE 106 mEq/L (98-107); CREATININE 0.8 mg/dL (0.6-1.3); GLUCOSE 95 mg/dL (70-105); PHOSPHORUS 3.7 mg/dL (2.5-4.9); POTASSIUM 4.5 mEq/L (3.5-5.1); SODIUM 138 mEq/L (136-145); UREA NITROGEN BLOOD 15 mg/dL (9-23)
[2023-10-06] MEDS: DOCUSATE SODIUM 100MG CAPSULE PO SCH ×2 (09:05→17:00)
[2023-10-06] MEDS: FOLIC ACID 1MG TABLET PO SCH (09:05)
[2023-10-06] MEDS: THIAMINE HCL 100MG TABLET PO SCH (09:05)
[2023-10-06] MEDS: LISINOPRIL 10MG TABLET PO SCH (09:06)
[2023-10-06] MEDS: METOPROLOL TARTRATE 25MG TABLET PO SCH ×2 (09:06→20:59)
[2023-10-06] MEDS: MUPIROCIN 2% OINT 15GM NS SCH (09:06)
[2023-10-06] MEDS: APIXABAN 2.5 MG TABLET PO SCH ×2 (13:30→17:00)
[2023-10-06] MEDS: DEXT 5%/0.45% NACL 1000ML 1,000 ML IV SCH (13:30)
[2023-10-06 15:09] LABS: HEMATOCRIT 26.2 % (42.0-52.0); HEMOGLOBIN 8.6 g/dL (14.0-18.0); MEAN CORPUSCULAR HEMOGLOBIN 28.4 pg (28.0-32.0); MEAN CORPUSCULAR HGB CONC 32.8 g/dL (31.0-37.0); MEAN CORPUSCULAR VOLUME 86.8 fL (80.0-94.0); PLATELET 320 x1000/uL (130-400); RED BLOOD CELL COUNT 3.02 mill/uL (4.7-6.1); RED CELL DISTRIBUTION WIDTH 16.7 % (11.6-14.6); WHITE BLOOD COUNT 5.8 x1000/uL (4.5-11.0)
[2023-10-06 20:00] VITALS: BP 136/88; PULSE 107; RESP 18; TEMP 97.9
[2023-10-06] MEDS: FAMOTIDINE 20MG TABLET PO SCH (20:58)
[2023-10-06] MEDS: ATORVASTATIN CALCIUM 20MG TABLET PO SCH (20:58)
[2023-10-07] MEDS: DEXT 5%/0.45% NACL 1000ML 1,000 ML IV SCH ×2 (05:09→21:13)
[2023-10-07] MEDS: APIXABAN 2.5 MG TABLET PO SCH ×2 (07:54→16:20)
[2023-10-07] MEDS: DOCUSATE SODIUM 100MG CAPSULE PO SCH ×2 (07:54→16:19)
[2023-10-07] MEDS: FOLIC ACID 1MG TABLET PO SCH (07:54)
[2023-10-07] MEDS: METOPROLOL TARTRATE 25MG TABLET PO SCH ×2 (07:55→21:08)
[2023-10-07] MEDS: THIAMINE HCL 100MG TABLET PO SCH (07:56)
[2023-10-07] MEDS: LISINOPRIL 10MG TABLET PO SCH (07:56)
[2023-10-07 08:00] VITALS: BP 116/77; PULSE 105; RESP 20; TEMP 96.9
[2023-10-07 20:00] VITALS: BP 116/44; PULSE 71; RESP 19; TEMP 98.1
[2023-10-07] MEDS: ATORVASTATIN CALCIUM 20MG TABLET PO SCH (21:07)
[2023-10-07] MEDS: FAMOTIDINE 20MG TABLET PO SCH (21:07)
[2023-10-08 06:44] LABS: HEMATOCRIT. 27.2 % (42.0-52.0); HEMOGLOBIN. 8.9 g/dL (14.0-18.0); MEAN CORPUSCULAR HEMOGLOBIN 28.3 pg (28.0-32.0); MEAN CORPUSCULAR HGB CONC 32.8 g/dL (31.0-37.0); MEAN CORPUSCULAR VOLUME 86.2 fL (80.0-94.0); MEAN PLATELET VOLUME 7.3 fl (7.4-10.4); PLATELET 359 x1000/uL (130-400); RED BLOOD CELL COUNT 3.15 mill/uL (4.7-6.1); RED CELL DISTRIBUTION WIDTH 17.1 % (11.6-14.6); WHITE BLOOD COUNT 5.5 x1000/uL (4.5-11.0)
[2023-10-08 06:47] LABS: DIFFERENTIAL COMMENT 1
[2023-10-08 07:19] LABS: ALANINE AMINOTRANSFERASE 44 IU/L (10-49); ALBUMIN 3.1 g/dL (3.2-4.8); ASPARTATE AMINOTRANSFERASE 37 IU/L (<34); BILIRUBIN TOTAL 0.6 mg/dL (0.1-1.0); CALCIUM 8.5 mg/dL (8.7-10.4); CARBON DIOXIDE 27 mEq/L (21-32); CHLORIDE 104 mEq/L (98-107); CREATININE 0.8 mg/dL (0.6-1.3); GLUCOSE 97 mg/dL (70-105); POTASSIUM 4.5 mEq/L (3.5-5.1); PROTEIN TOTAL 5.8 g/dL (6.0-8.3); SODIUM 138 mEq/L (136-145); UREA NITROGEN BLOOD 14 mg/dL (9-23)
[2023-10-08 07:56] VITALS: BP 140/77; PULSE 64; RESP 20; TEMP 97.3
[2023-10-08] MEDS: FOLIC ACID 1MG TABLET PO SCH (08:25)
[2023-10-08] MEDS: LISINOPRIL 10MG TABLET PO SCH (08:25)
[2023-10-08] MEDS: THIAMINE HCL 100MG TABLET PO SCH (08:25)
[2023-10-08] MEDS: METOPROLOL TARTRATE 25MG TABLET PO SCH ×2 (08:26→21:12)
[2023-10-08] MEDS: DOCUSATE SODIUM 100MG CAPSULE PO SCH ×2 (08:26→16:11)
[2023-10-08] MEDS: APIXABAN 2.5 MG TABLET PO SCH ×2 (08:26→16:11)
[2023-10-08] MEDS: ACETAMINOPHEN 325MG TABLET PO PRN (09:31)
[2023-10-08 10:57] LABS: ANISOCYTOSIS 1+; PLATELET ESTIMATE NORMAL
[2023-10-08] MEDS: DEXT 5%/0.45% NACL 1000ML 1,000 ML IV SCH (14:29)
[2023-10-08] MEDS ORDERED: RAMI10CA68 MT (16:49)
[2023-10-08] MEDS ORDERED: METO-396 PO (16:49)
[2023-10-08] MEDS ORDERED: APIX2.5T MT (16:49)
[2023-10-08] MEDS ORDERED: SIMV-46 MT (16:49)
[2023-10-08 20:00] VITALS: BP 136/61; PULSE 74; RESP 18; TEMP 98.1
[2023-10-08] MEDS: ATORVASTATIN CALCIUM 20MG TABLET PO SCH (21:12)
[2023-10-08] MEDS: FAMOTIDINE 20MG TABLET PO SCH (21:13)
[2023-10-09] MEDS: DEXT 5%/0.45% NACL 1000ML 1,000 ML IV SCH ×2 (07:04→21:01)
[2023-10-09 08:00] VITALS: BP 140/77; PULSE 100; RESP 18; TEMP 97.4
[2023-10-09] MEDS: THIAMINE HCL 100MG TABLET PO SCH (08:49)
[2023-10-09] MEDS: LISINOPRIL 10MG TABLET PO SCH (08:49)
[2023-10-09] MEDS: APIXABAN 2.5 MG TABLET PO SCH ×2 (08:49→17:48)
[2023-10-09] MEDS: FOLIC ACID 1MG TABLET PO SCH (08:49)
[2023-10-09] MEDS: DOCUSATE SODIUM 100MG CAPSULE PO SCH ×2 (08:49→17:48)
[2023-10-09] MEDS: METOPROLOL TARTRATE 25MG TABLET PO SCH ×2 (08:51→21:00)
[2023-10-09 20:00] VITALS: BP 128/68; PULSE 103; RESP 18; TEMP 96.9
[2023-10-09] MEDS: FAMOTIDINE 20MG TABLET PO SCH (21:00)
[2023-10-09] MEDS: ATORVASTATIN CALCIUM 20MG TABLET PO SCH (21:00)
[2023-10-10 08:00] VITALS: BP 117/67; PULSE 103; RESP 18; TEMP 96.8
[2023-10-10] MEDS: LISINOPRIL 10MG TABLET PO SCH (09:30)
[2023-10-10] MEDS: DOCUSATE SODIUM 100MG CAPSULE PO SCH ×2 (09:30→17:10)
[2023-10-10] MEDS: THIAMINE HCL 100MG TABLET PO SCH (09:30)
[2023-10-10] MEDS: APIXABAN 2.5 MG TABLET PO SCH ×2 (09:31→17:10)
[2023-10-10] MEDS: FOLIC ACID 1MG TABLET PO SCH (09:31)
[2023-10-10] MEDS: METOPROLOL TARTRATE 25MG TABLET PO SCH ×2 (09:31→21:22)
[2023-10-10] MEDS: ACETAMINOPHEN 325MG TABLET PO PRN (12:07)
[2023-10-10 20:00] VITALS: BP 111/54; PULSE 103; RESP 18; TEMP 98.1
[2023-10-10] MEDS: ATORVASTATIN CALCIUM 20MG TABLET PO SCH (21:21)
[2023-10-10] MEDS: FAMOTIDINE 20MG TABLET PO SCH (21:22)
[2023-10-11 08:00] VITALS: BP 154/75; PULSE 90; RESP 18; TEMP 96.8
[2023-10-11] MEDS: DOCUSATE SODIUM 100MG CAPSULE PO SCH ×2 (09:00→16:32)
[2023-10-11] MEDS: LISINOPRIL 10MG TABLET PO SCH (09:56)
[2023-10-11] MEDS: THIAMINE HCL 100MG TABLET PO SCH (09:56)
[2023-10-11] MEDS: APIXABAN 2.5 MG TABLET PO SCH ×2 (09:56→16:32)
[2023-10-11] MEDS: FOLIC ACID 1MG TABLET PO SCH (09:57)
[2023-10-11] MEDS: METOPROLOL TARTRATE 25MG TABLET PO SCH ×2 (09:57→21:34)
[2023-10-11 20:00] VITALS: BP 111/56; PULSE 107; RESP 18; TEMP 97
[2023-10-11] MEDS: ATORVASTATIN CALCIUM 20MG TABLET PO SCH (21:31)
[2023-10-11] MEDS: FAMOTIDINE 20MG TABLET PO SCH (21:34)
[2023-10-12 08:00] VITALS: BP 143/71; PULSE 95; RESP 18; TEMP 96.4
[2023-10-12] MEDS: THIAMINE HCL 100MG TABLET PO SCH (08:36)
[2023-10-12] MEDS: FOLIC ACID 1MG TABLET PO SCH (08:37)
[2023-10-12] MEDS: APIXABAN 2.5 MG TABLET PO SCH ×2 (08:37→17:44)
[2023-10-12] MEDS: DOCUSATE SODIUM 100MG CAPSULE PO SCH ×2 (08:37→17:44)
[2023-10-12] MEDS: LISINOPRIL 10MG TABLET PO SCH (08:38)
[2023-10-12] MEDS: METOPROLOL TARTRATE 25MG TABLET PO SCH ×2 (08:39→20:19)
[2023-10-12] MEDS ORDERED: RAMI10CA68 PO (18:50)
[2023-10-12 20:00] VITALS: BP 111/68; PULSE 93; RESP 19; TEMP 97.3
[2023-10-12] MEDS: ATORVASTATIN CALCIUM 20MG TABLET PO SCH (20:18)
[2023-10-12] MEDS: FAMOTIDINE 20MG TABLET PO SCH (20:19)
[2023-10-13 08:00] VITALS: BP 118/66; PULSE 89; RESP 18; TEMP 96.5
[2023-10-13] MEDS: THIAMINE HCL 100MG TABLET PO SCH (08:07)
[2023-10-13] MEDS: DOCUSATE SODIUM 100MG CAPSULE PO SCH (08:08)
[2023-10-13] MEDS: FOLIC ACID 1MG TABLET PO SCH (08:08)
[2023-10-13] MEDS: APIXABAN 2.5 MG TABLET PO SCH (08:08)
[2023-10-13] MEDS: LISINOPRIL 10MG TABLET PO SCH (08:12)
[2023-10-13] MEDS: METOPROLOL TARTRATE 25MG TABLET PO SCH (08:12)
[2023-10-13] MEDS ORDERED: ATOR20TA PO (09:50)
[2023-10-13] MEDS ORDERED: THIA100T72 PO (09:50)
[2023-10-13] MEDS ORDERED: FOLI-43 PO (09:50)
[2023-10-13] MEDS ORDERED: METO25TA6 PO (09:50)
[2023-10-13 10:17] VITALS: BP 118/66; PULSE 89; TEMP 96.5; O2SAT 98
== END 2023-10-13 13:15 | disposition home health service (06) | DRG 535 ==
LOC: 4WST 16:05
PROVIDERS: ADMIT Physical Medicine & Rehabilitation Spinal Cord Injury Medicine; ATTEND Internal Medicine
DX: S72.141A Displaced intertrochanteric fracture of right femur, initial encounter for closed fracture (principal); G93.41 Metabolic encephalopathy; F03.93 Unspecified dementia, unspecified severity, with mood disturbance; F05 Delirium due to known physiological condition; D63.8 Anemia in other chronic diseases classified elsewhere; I48.0 Paroxysmal atrial fibrillation; D50.9 Iron deficiency anemia, unspecified; E78.5 Hyperlipidemia, unspecified; I10 Essential (primary) hypertension; R26.9 Unspecified abnormalities of gait and mobility; R53.81 Other malaise; R74.01 Elevation of levels of liver transaminase levels; W34.09XA Accidental discharge from other specified firearms, initial encounter; Y93.89 Activity, other specified; Y92.89 Other specified places as the place of occurrence of the external cause; Z85.46 Personal history of malignant neoplasm of prostate; Z79.01 Long term (current) use of anticoagulants; Y99.8 Other external cause status; Z91.81 History of falling; Z92.3 Personal history of irradiation; Z79.899 Other long term (current) drug therapy; Z82.49 Family history of ischemic heart disease and other diseases of the circulatory system; R94.6 Abnormal results of thyroid function studies
CPT/HCPCS: 36415; 73502; 80048; 80053; 81003; 82140; 82306; 82607; 82728; 82746; 83036; 83540; 83550; 83735; 84100; 84134; 84153; 84443; 85025; 85027; 92523; 93970; 97110; 97116; 97150; 97162; 97166; 97530; 97535; 97542; C1893; J1650; J7050; G0103

== ENCOUNTER → 2023-11-26 | Outpatient (CLI) | payer MEDICARE ==
[~2023-11-26] MED LIST: APIX2.5T MT; ATOR20TA PO; FOLI-43 PO; METO25TA6 PO; RAMI10CA68 MT; SIMV-46 MT; THIA100T72 PO
== END | disposition home or self-care (01) ==
LOC: RAD 11:59
DX: S72.91XA Unspecified fracture of right femur, initial encounter for closed fracture (principal); X58.XXXA Exposure to other specified factors, initial encounter; Y93.89 Activity, other specified; Y92.89 Other specified places as the place of occurrence of the external cause; Y99.8 Other external cause status
CPT/HCPCS: 73502